=== PATIENT | female | born 1960 ===

== ENCOUNTER 2018-08-02 08:52 | Outpatient (CLI) | payer OTHER ==
[~2018-08-02] VITALS: Ht 160 cm; Wt 77.1 kg
== END 2018-08-02 09:10 | disposition home or self-care (01) ==
LOC: OFIC 805 08:52
DX: H74.8X3 Other specified disorders of middle ear and mastoid, bilateral (principal); H91.8X2 Other specified hearing loss, left ear; R09.81 Nasal congestion